=== PATIENT | female | born 1975 | race Caucasian/White ===

== ENCOUNTER → 2016-11-15 | Outpatient (CLI) | payer OTHER ==
[~2016-11-15] MED LIST: AMOXICILLIN500 M2 PO; ANAPROX DS550 MG PO; ATIVAN1 MG PO; BACTRIM DS 8001 TA1 PO; CELEXA20 MG PO; CELEXA40 MG PO; COMBIVENT RESPIM4 GM IH; COMBIVENT1 AR1 INH; DOXYCYCLINE HY100 M5 PO; FLEXERIL10 MG PO; HYDROCODONE BIT1 T11 PO; INCRUSE EL62.5 MCG/A INH; KLONOPIN1 MG PO; LYRICA150 MG PO; LYRICA75 MG PO; MOTRIN800 MG PO; NAPROXEN375 MG PO; NEURONTIN300 MG PO; NORCO 10-325 T1 EACH PO; NORCO 325 MG-101 TAB PO; NORCO 5-325 TA1 EACH PO; PERCOCET 325 MG1 TA6 PO; PREDNICOT20 MG PO; PREDNISONE20 M1 PO; ROBAXIN750 MG PO; SEPTRA DS 800 M1 TAB PO; SEROQUEL100 MG PO; SPIRIVA -- 3018 MCG INH; SULFAMETH/TRIME1 TAB PO; VANCOCIN1000 MG/25 IV; VENTOLIN0.09 MG/AC INH; XANAX1 MG PO; ZOLOFT50 MG PO
== END | disposition home or self-care (01) ==
LOC: CT 11-02 10:00 → US 09:30
DX: C50.311 Malignant neoplasm of lower-inner quadrant of right female breast (principal); K76.89 Other specified diseases of liver; F17.200 Nicotine dependence, unspecified, uncomplicated; Z90.11 Acquired absence of right breast and nipple

== ENCOUNTER → 2017-05-14 | Outpatient (CLI) | payer OTHER | END | disposition home or self-care (01) | LOC: MAMMO 04-24 13:00 | DX: R92.8 Other abnormal and inconclusive findings on diagnostic imaging of breast (principal); Z90.11 Acquired absence of right breast and nipple ==

== ENCOUNTER → 2017-08-13 | Outpatient (CLI) | payer OTHER | END | disposition home or self-care (01) | LOC: US 08-08 13:00 | DX: N93.8 Other specified abnormal uterine and vaginal bleeding (principal); Z85.3 Personal history of malignant neoplasm of breast ==

== ENCOUNTER 2019-04-28 21:16 | Inpatient (IN) | payer OTHER ==
[~2019-04-28] VITALS: Ht 182.8 cm; Wt 66.7 kg
--- NOTE | ~2019-04-28 | PR ---
[place], [place] PROGRESS NOTE NAME: KYLEE EDGE [facility] #: [id number] UNIT #: [id number] ROOM: 406 DOCTOR: BEAU MACDONALD MD BIRTHDATE: [birth year] DOS: 05/01/2019 SUBJECTIVE: The patient is not having any new complaints. She is starting to feel better. OBJECTIVE: VITAL SIGNS: Blood pressure is 109/66, pulse of 80, respirations 18, temperature 97.6. LUNGS: Diminished breath sounds. A few scattered wheezes which is much improved over the last few days. HEART: Regular. ABDOMEN: Soft, scaphoid. EXTREMITIES: Without any edema. LABORATORY DATA: White cell count has come down to 16,000. Blood culture shows no bacterial growth. ASSESSMENT AND PLAN: 1. Acute exacerbation of chronic obstructive pulmonary disease, on steroids and antibiotics. She does not have a nebulizer at home. We will try to get one for her before she goes home. 2. Elevated white cell count, most likely from steroids. It is coming down, was normal at admission. There is no evidence of sepsis in this patient. 3. Acute tracheobronchitis, on IV antibiotics. 4. Major depression, mild, recurrent. Continue medications. BEAU MACDONALD MD CM:PNTRANS 07 21 BEAU MACDONALD MD 05/01/19 142 interface
--- NOTE | ~2019-04-28 | CON ---
[place], [place] REPORT OF CONSULTATION NAME: KYLEE EDGE [facility] #: [id number] UNIT #: [id number] ROOM: 406 DOCTOR: NATALIE BLANCO MDKENDALL BIRTHDATE: [birth year] DOS: 05/02/2019 PULMONARY CONSULTATION, EVALUATION AND MANAGEMENT CONSULTATION REQUESTED BY: Dr. Hilda Arevalo. REASON FOR CONSULTATION: To assess abnormal CT scan of the chest. HISTORY OF PRESENT ILLNESS: A 43-year-old white female patient who was admitted under the care of Dr. Hilda Arevalo on the date of 04/28/2019. The patient presented to the hospital and admitted as she has been developing severe respiratory symptom, coughing, chest congestion with wheezing and tightness in the chest. The symptoms of the patient started 2 days prior to admission to the hospital. The patient has been hospitalized under the care of Dr. Hilda Arevalo on 04/28/2019. She was planned for home discharge today. The patient had accidentally CT scan of chest ordered by the nursing staff that reported abnormal findings, stated multifocal pneumonia. I was asked to assess the patient for that. The patient stated that she has been expectorating sputum with intermittent wheezing still present, but gradually improving and significantly decreased since hospitalization. She denies symptoms of chest pain. Shortness of breath was still reported with exertion, but overall improving. The patient is able to walk more distances since hospitalization. Denies symptoms of acute chest pain. There were no symptoms of hemoptysis stated from admission. REVIEW OF SYSTEMS: CONSTITUTIONAL SYMPTOMS: Fatigue and tiredness reported. Denies symptoms of fever or chills. EYES: Denies any burning, redness, or tenderness. EARS, NOSE, THROAT SYMPTOMS: No sore throat, hoarseness, otalgia, postnasal drainage or epistaxis. CARDIOVASCULAR SYSTEM: Denies angina pain, edema, or pain of the lower extremities. GASTROINTESTINAL SYMPTOMS: Denies dysphagia, nausea, vomiting, diarrhea, abdominal pain, hematemesis, melena, or hematochezia. SKIN: Denies lesions or rashes. CENTRAL NERVOUS SYSTEM: Denies dizziness, headache, diplopia, or syncopal episodes. MUSCULOSKELETAL: No acute joint pain, redness, or tenderness. CENTRAL NERVOUS SYSTEM: Denies dizziness, headache, diplopia or syncopal episode. Remaining systems were reviewed. They were noted all negative. PAST MEDICAL HISTORY: Reported as: 1. COPD. 2. Chronic nicotine dependence. 3. Intervertebral disk disease with lower back pain. 4. General anxiety disorder and depression. 5. Bipolar disorder. [place], [place] REPORT OF CONSULTATION NAME: KYLEE EDGE UNIT #: [id number] ROOM: [facility] DOCTOR: KENDALL GONSALVES MD BIRTHDATE: [birth year] SOCIAL HISTORY: Stated by the patient as she lives at home, currently , has 1 child. Smoking was noted less than a pack of cigarettes per day since teenager. Active tobacco use noted until hospitalization. Denies any alcohol or illicit drug use. FAMILY HISTORY: Father at age of 54 due to lung cancer. Mother at the age of 5454 years old from some other illnesses. HOME MEDICATIONS: Reported as doxepin, gabapentin, Vistaril, and Seroquel. CURRENT MEDICATIONS: Actively administered were noted as Celebrex, gabapentin, Seroquel, hydroxyzine, doxepin, nicotine replacement patches, Solu-Medrol 40 mg b.i.d., IV Rocephin, and some other meds including bronchodilators every 4 hours, DuoNeb. DRUG ALLERGIES: Reported as no known drug allergies. PHYSICAL EXAMINATION: GENERAL: This is a 43-year-old female patient who has been noted currently awake and alert, resting comfortably on the bed. Height of 6 feet, weight of 147 pounds, BMI 19.9. VITAL SIGNS: Normal temperature in the last 3 days, respiratory rate ranged between 18-28, heart rate 71-74, blood pressure 104/68-116/78. Pulse oxygen saturation on 2 liters nasal cannula 98% saturation recorded at the present time on the rest. The pulse oxygen saturation recorded was 88% on admission. HEENT: Examination shows head was atraumatic. Eyes nonicterus. NECK: Supple. CARDIOVASCULAR SYSTEM: S1, S2 is audible. LUNGS: Noted with expiratory wheezing in the lungs bilaterally. The wheezing was noted mild at the present time. No crackles were heard. ABDOMEN: Flat, soft, nontender. Bowel sounds present. EXTREMITIES: The patient was noted without edema, clubbing or cyanosis. MUSCULOSKELETAL: The patient noted without any acute deformities. CENTRAL NERVOUS SYSTEM: The patient's cranial nerves 2-12 intact. LABORATORY DATA: Assessed for this consultation for this patient. Admission CBC of 04/28/2019; WBC count 11.9, hemoglobin and hematocrit normal, platelet count normal. Eosinophils were 3%. CMP of 04/28/2019; normal BUN and creatinine, glucose 100, potassium 3.4, CO2 of 33 at that time. CBC that was done just today; WBC count 16.6, hemoglobin 13.1, platelet count were normal. CBC this morning; WBC count 14.2. Remaining CBC was normal. BMP 17 was noted, normal BUN and creatinine. Potassium was noted normal as well. Chest x-ray noted hyperinflation of lung without any acute visible pulmonary infiltration. Lactic acid noted 0.9 on 04/28/[address] scan of chest without contrast was reviewed, shows multiple areas of ground-glass opacity scattered in the lungs bilaterally in all of the lobes. There were no discrete area of consolidation or any lymphadenopathy findings with centrilobular emphysema. IMPRESSION: [place], [place] REPORT OF CONSULTATION NAME: KYLEE EDGE UNIT #: [id number] ROOM: [facility] DOCTOR: NATALIE BLANCO MD,KENDALL BIRTHDATE: [birth year] 1. The patient who has been currently admitted to the hospital with finding highly suggestive of acute hypoxic respiratory failure with acute exacerbation of bronchial asthma. Current abnormal finding, which were noted for this patient CT scan suggested possibility of atypical pneumonia, likely cause as well and focal areas of atelectasis, mucus impaction of the airways. 2. Chronic heavy nicotine dependence also noted for a long-term. 3. History of chronic low back pain and psychiatric illnesses. PLAN OF MANAGEMENT: At this time, the patient has been expectorating sputum. The hypoxia noted on admission has resolved. Wheezing is still present, but not completely resolved. The patient would be discharged home on tapering dose of prednisone prescription ordered for the patient as well as Zithromax to be given orally for 5 days of Z-VIRGINIE. Complete abstinence tobacco use were recommended. Nicotine replacement patches prescription was also given to the patient. The patient has been ordered low dose of prednisone and the cefuroxime by Dr. Hilda Arevalo, which will be discontinued and not used by the patient. The patient was strongly suggested outpatient followup established to document the resolution of current problem. Further additional workup as necessary. Other therapy, plan of management, plan of care and treatment. If the patient continued to have some respiratory issues, the patient needs an urgent appointment. She could be seen in the office in the next few days, otherwise to be followed the patient should suffice. No further workup at this time to be started at this hospitalization and investigation further needed to be done as an outpatient. Thanks for allowing me to participate in the care of this patient. KENDALL ESTRADA MD CM:CONSTR:REPORT OF CONSULTATION 1523 05/03/19 0216 interface
--- NOTE | ~2019-04-28 | DS ---
[place], [place] DISCHARGE SUMMARY NAME: KYLEE EDGE [facility] #: [id number] UNIT #: [id number] ROOM: 406 DOCTOR: BEAU MACDONALD MD BIRTHDATE: [birth year] DOS: HOSPITAL COURSE: The patient is 43 years old. The patient is not known to me. The patient comes in with complaints of difficulty breathing, cough. Please see H and P for details. The patient was found to have significant bronchospasm, was admitted with diagnosis of acute exacerbation of COPD, was placed on IV steroids, IV antibiotics, breathing treatments. Lactic acid was normal. Blood cultures were negative. White cell count went up from normal to 19,000, possibly from steroids. It has come down and is now down today to 14.2. Her bronchospasm is much improved. She has been given a nebulizer and breathing treatments. The plan is to discharge her to home. She is encouraged to quit smoking. DISCHARGE MEDICATIONS: Prednisone tapering dose, Ceftin 250 twice daily for 5 days, breathing treatments with DuoNeb q.i.d., gabapentin 800 q.i.d., Seroquel 100 at bedtime, hydroxyzine 25 at bedtime, doxepin 25 at bedtime. BEAU MACDONALD MD CM:DISCHARG 5 5 BEAU MACDONALD MD 05/02/19935 interface
--- NOTE | ~2019-04-28 | WRIGHTHP ---
[place], [place] PATIENT HISTORY AND PHYSICAL EXAM NAME: KYLEE EDGE [facility] #: [id number] UNIT #: [id number] ROOM: 406 DOCTOR: BEAU MACDONALD MD BIRTHDATE: [birth year] DOS: 04/28/2019 HISTORY OF PRESENT ILLNESS: The patient is 43 years old. The patient comes in with complaints of cough and shortness of breath. The patient states that her son had a cold and she started developing a scratchy throat and later on progressed to a cough and yesterday she had a hard time breathing. She used her mother's oxygen. She was using inhalers and was not helping, so she decided to come into the hospital. She denies having any chest pains or palpitations, does not have any fever or chills, does not have any abdominal pain, nausea, and emesis. PAST MEDICAL HISTORY: Significant for: 1. COPD. 2. Moderate cigarette smoker. 3. Chronic low back pain. MEDICATIONS: Doxepin 25 at bedtime, gabapentin 800 q.i.d., Vistaril 25 at bedtime, Seroquel 100 at bedtime. SOCIAL HISTORY: Smokes about less than a pack of cigarettes a day, does not use any alcohol. Lives at home. PHYSICAL EXAMINATION: GENERAL: She is awake and alert and oriented. VITAL SIGNS: Blood pressure is 113/59, pulse of 96, respirations 18, temperature 98.2. LUNGS: Diminished breath sounds. Scattered wheezes and rhonchi. HEART: Regular. ABDOMEN: Soft, scaphoid. EXTREMITIES: Without any edema. LABORATORY DATA: White cell count is 11.9, hemoglobin 13.1, hematocrit 40.3, platelets 209. Comprehensive glucose 100, BUN 8, creatinine 0.93, sodium 141, potassium 3.4, chloride 106, bicarbonate 33. Troponin is less than 0.15. SGOT and SGPT within normal limits. Lactic acid normal. Chest x-ray negative. ASSESSMENT AND PLAN: 1. The patient with acute exacerbation of chronic obstructive pulmonary disease. The patient is placed on IV steroids and breathing treatments, maximize bronchodilators. 2. Acute tracheobronchitis. IV antibiotics have been added, 3. Moderate cigarette smoker, counseled. The patient is currently using a patch to quit smoking. 4. Major depression, multiple psych medications are being continued. [place], [place] PATIENT HISTORY AND PHYSICAL EX[id number] UNIT #: [id number] ROOM: 406 DOCTOR: BEAU MACDONALD MD BIRTHDATE: [birth year] BEAU MACDONALD MD CM:HISPHYS:PATIENT HISTORY AND PHYSICAL EXAMINATION 1515 1524 BEAU MACDONALD MD 04/29/19 1524 interface
--- NOTE | ~2019-04-28 | EKG ---
[place], [place] ELECTROCARDIOGRAM REPORT NAME: KYLEE EDGE UNIT #: [id number] ROOM: 406 DOCTOR: HARVEY DRAFT REPORT BIRTHDATE: [birth year] [facility] Test Date: 2019-04-28 Test Time: 22:05:57 Pat Name: KYLEE EDGE Department: Room: 406 Gender: F [employer] Architect: Genevieve Juárez : 1975 Requested By: DANIEL NGUYỄN PA-C Order Number: [id number] Reading MD: Scooby Morse MD Measurements Intervals [place] Rate: 89 P: 88 SC: 180 QRS: 87 QRSD: 97 T: 40 QT: 372 QTc: 453 Interpretive Statements Sinus rhythm KAYLI, consider biatrial enlargement Electronically Signed On 04-29-2019 6:06:47 PDT by Scooby Morse MD CM:EKGRPT:ELECTROCARDIOGRAM REPORT 04 0606 DANIEL NGUYỄN PA-C EPIPHANY DRAFT REPORT DANIEL NGUYỄN PA-C
--- NOTE | ~2019-04-28 | PR ---
[place], [place] PROGRESS NOTE NAME: KYLEE EDGE [facility] #: [id number] UNIT #: [id number] ROOM: 406 DOCTOR: BEAU MACDONALD MD BIRTHDATE: [birth year] DOS: 05/02/2019 SUBJECTIVE: The patient is doing well, does not have any new complaints today. OBJECTIVE: VITAL SIGNS: Blood pressure is 116/70, pulse of 74, respirations 18, temperature 97.6. LUNGS: Diminished breath sounds. A few wheezes heard, which is much improved. HEART: Regular. ABDOMEN: Soft, scaphoid. EXTREMITIES: Without any edema. ASSESSMENT AND PLAN: 1. Acute exacerbation of chronic obstructive pulmonary disease, on intravenous steroids. A nebulizer was ordered yesterday and Respiratory is trying to get that order for the patient. If we can get her that nebulizer for home, she can be discharged. 2. Acute tracheobronchitis, on antibiotics. 3. Moderate cigarette smoker. She needs to stop smoking to avoid future admissions to the hospital. White cell count 16,000 yesterday, we will repeat it today. BEAU MACDONALD MD CM:PNTRANS 0747 1012 BEAU MACDONALD MD 05/02/19 1012 interface
--- NOTE | ~2019-04-28 | PR ---
[place], [place] PROGRESS NOTE NAME: KYLEE EDGE [facility] #: [id number] UNIT #: [id number] ROOM: 406 DOCTOR: BEAU MACDONALD MD BIRTHDATE: [birth year] DOS: 04/30/2019 SUBJECTIVE: The patient is starting to cough up a little bit this morning. OBJECTIVE: VITAL SIGNS: Pressure is 128/68, pulse of 80, respirations 18, temperature 98.1. LUNGS: Diminished breath sounds. Scattered wheezes and rhonchi. HEART: Regular. ABDOMEN: Soft, scaphoid. EXTREMITIES: Without any edema. LABORATORY DATA: WBC count is 19.8, hemoglobin 12.6, hematocrit normal. Glucose is 134. BUN and creatinine and electrolytes were normal. ASSESSMENT AND PLAN: 1. Acute exacerbation of chronic obstructive pulmonary disease, on IV steroids and breathing treatments. 2. Acute tracheobronchitis, but chest x-ray did not show any pathology. White cell count has gone up to 19,000. This could be steroid effect. Repeat the CBC again in the morning. If it does not come down, may need to consider a CT of the chest. 3. Major depression, moderate, controlled. BEAU MACDONALD MD CM:PNTRANS 0840 BEAU MACDONALD MD 05/01/195 interface
[2019-04-28 21:19] VITALS: BP 109/69
[2019-04-28 22:11] LABS: BASO % 0.3 % (0.0-1.0); EOS # 0.4 10*3/uL (0.0-0.4); HEMATOCRIT 40.3 % (37.0-47.0); HEMOGLOBIN 13.1 g/dl (12.0-16.0); LYMPH # 1.8 10*3/uL (1.3-4.4); LYMPH % 15.1 % (27.0-41.0); MEAN CELL VOLUME 98.1 fl (81.0-99.0); MEAN CORPUSCULAR HGB 31.9 pg (27.0-31.0); MEAN CORPUSCULAR HGB CONC 32.5 g/dl (33.0-37.0); MEAN PLATELET VOLUME 10.1 fl (9.6-12.3); MONO # 0.7 10*3/uL (0.1-1.0); MONO % 5.8 % (3.0-9.0); NEUT % 75.5 % (47.0-73.0); PLATELET COUNT AUTOMATED 209 10*3/uL (130-400); RED BLOOD COUNT 4.11 10*6/uL (4.10-5.10); RED CELL DISTRI WIDTH 15.1 % (0-14.5); WHITE BLOOD COUNT 11.9 10*3/uL (4.8-10.8)
[2019-04-28 22:28] LABS: ALBUMIN 3.8 gm/dl (3.1-4.5); ALKALINE PHOSPHATASE 63 U/L (45-117); BUN 8 mg/dl (7-24); CHLORIDE 106 mmol/L (98-107); CREATININE 0.93 mg/dL (0.55-1.02); LIPASE 82 U/L (73-393); POTASSIUM 3.4 mmol/L (3.5-5.1); SGOT/AST 15 IU/L (3-35); SGPT/ALT 15 U/L (12-78); SODIUM 141 mmol/L (136-145)
[2019-04-28 22:31] LABS: TROPONIN I < 0.015 ng/ml (<0.045)
[2019-04-28 23:08] VITALS: BP 116/74
[2019-04-28 23:15] LABS: BILIRUBIN NEGATIVE (NEGATIVE); BLOOD NEGATIVE (NEGATIVE); CLARITY CLEAR (CLEAR); COLOR YELLOW (YELLOW); GLUCOSE NEGATIVE (NEGATIVE); KETONE NEGATIVE (NEGATIVE); LEUKO ESTERASE NEGATIVE (NEGATIVE); NITRITE NEGATIVE (NEGATIVE); UROBILINOGEN 0.2 E.U./dl (0.2-1.0)
[2019-04-28] MEDS ORDERED: VISTARIL25 M2 PO (23:43)
[2019-04-28] MEDS ORDERED: SINEQUAN25 MG PO (23:45)
[2019-04-29] VITALS: BP 120/59
[2019-04-29 07:46] VITALS: BP 110/48
[2019-04-29 12:00] VITALS: BP 113/59
[2019-04-29 15:44] VITALS: BP 95/73
[2019-04-29 20:00] VITALS: BP 124/71
[2019-04-30] VITALS: BP 106/67
[2019-04-30 07:03] LABS: BASO % 0.2 % (0.0-1.0); HEMATOCRIT 38.5 % (37.0-47.0); HEMOGLOBIN 12.6 g/dl (12.0-16.0); LYMPH # 1.5 10*3/uL (1.3-4.4); LYMPH % 7.3 % (27.0-41.0); MEAN CELL VOLUME 95.1 fl (81.0-99.0); MEAN CORPUSCULAR HGB 31.1 pg (27.0-31.0); MEAN CORPUSCULAR HGB CONC 32.7 g/dl (33.0-37.0); MEAN PLATELET VOLUME 10.3 fl (9.6-12.3); MONO # 0.9 10*3/uL (0.1-1.0); MONO % 4.3 % (3.0-9.0); NEUT # 17.3 10*3/uL (2.3-7.9); NEUT % 87.6 % (47.0-73.0); PLATELET COUNT AUTOMATED 233 10*3/uL (130-400); RED BLOOD COUNT 4.05 10*6/uL (4.10-5.10); RED CELL DISTRI WIDTH 15.2 % (0-14.5); WHITE BLOOD COUNT 19.8 10*3/uL (4.8-10.8)
[2019-04-30 07:19] LABS: BUN 9 mg/dl (7-24); CHLORIDE 107 mmol/L (98-107); CREATININE 0.83 mg/dL (0.55-1.02); POTASSIUM 3.9 mmol/L (3.5-5.1); SODIUM 138 mmol/L (136-145)
[2019-04-30 08:00] VITALS: BP 128/68
[2019-04-30 12:00] VITALS: BP 105/63
[2019-04-30 16:00] VITALS: BP 126/60
[2019-04-30 20:00] VITALS: BP 118/72
[2019-05-01] VITALS: BP 109/66
[2019-05-01 06:10] LABS: BASO % 0.1 % (0.0-1.0); HEMATOCRIT 40.2 % (37.0-47.0); HEMOGLOBIN 13.1 g/dl (12.0-16.0); LYMPH # 1.4 10*3/uL (1.3-4.4); LYMPH % 8.4 % (27.0-41.0); MEAN CELL VOLUME 97.1 fl (81.0-99.0); MEAN CORPUSCULAR HGB 31.6 pg (27.0-31.0); MEAN CORPUSCULAR HGB CONC 32.6 g/dl (33.0-37.0); MEAN PLATELET VOLUME 10.4 fl (9.6-12.3); MONO # 0.6 10*3/uL (0.1-1.0); MONO % 3.7 % (3.0-9.0); NEUT # 14.4 10*3/uL (2.3-7.9); NEUT % 87.1 % (47.0-73.0); PLATELET COUNT AUTOMATED 223 10*3/uL (130-400); RED BLOOD COUNT 4.14 10*6/uL (4.10-5.10); RED CELL DISTRI WIDTH 15.6 % (0-14.5); WHITE BLOOD COUNT 16.6 10*3/uL (4.8-10.8)
[2019-05-01] MEDS ORDERED: NEBULIZER (07:01)
[2019-05-01 08:00] VITALS: BP 128/60
[2019-05-01 12:00] VITALS: BP 101/67
[2019-05-01 16:00] VITALS: BP 115/76
[2019-05-01 20:00] VITALS: BP 108/69
[2019-05-02] VITALS: BP 116/70
[2019-05-02] MEDS ORDERED: PREDNISONE5 MG PO (07:51)
[2019-05-02] MEDS ORDERED: CEFUROXIME AXE250 MG PO (07:51)
[2019-05-02] MEDS ORDERED: Ipratropium Brom3 ML INH (07:52)
[2019-05-02 08:00] VITALS: BP 104/68
[2019-05-02 08:10] LABS: BASO % 0.3 % (0.0-1.0); EOS % 0.2 % (1.0-4.0); HEMATOCRIT 42.3 % (37.0-47.0); HEMOGLOBIN 13.8 g/dl (12.0-16.0); LYMPH # 3.7 10*3/uL (1.3-4.4); LYMPH % 25.7 % (27.0-41.0); MEAN CELL VOLUME 97.2 fl (81.0-99.0); MEAN CORPUSCULAR HGB 31.7 pg (27.0-31.0); MEAN CORPUSCULAR HGB CONC 32.6 g/dl (33.0-37.0); MONO % 6.8 % (3.0-9.0); NEUT # 9.4 10*3/uL (2.3-7.9); NEUT % 66.3 % (47.0-73.0); PLATELET COUNT AUTOMATED 232 10*3/uL (130-400); RED BLOOD COUNT 4.35 10*6/uL (4.10-5.10); RED CELL DISTRI WIDTH 15.2 % (0-14.5); WHITE BLOOD COUNT 14.2 10*3/uL (4.8-10.8)
== END 2019-05-02 14:05 | disposition home or self-care (01) | DRG 133 ==
LOC: ED 21:16 → 4E 22:59 → EDHOLD 22:59 → 4E 23:22
PROVIDERS: Physician Assistant; ADMIT Internal Medicine
DX: J96.01 Acute respiratory failure with hypoxia (principal); J20.9 Acute bronchitis, unspecified; J45.901 Unspecified asthma with (acute) exacerbation; J44.1 Chronic obstructive pulmonary disease with (acute) exacerbation; F17.210 Nicotine dependence, cigarettes, uncomplicated; F41.1 Generalized anxiety disorder; M19.90 Unspecified osteoarthritis, unspecified site; J44.0 Chronic obstructive pulmonary disease with (acute) lower respiratory infection; F33.1 Major depressive disorder, recurrent, moderate; Z90.11 Acquired absence of right breast and nipple; Z98.1 Arthrodesis status; Z82.49 Family history of ischemic heart disease and other diseases of the circulatory system; Z81.8 Family history of other mental and behavioral disorders; Z80.9 Family history of malignant neoplasm, unspecified

== ENCOUNTER → 2021-12-07 | Outpatient (CLI) | payer OTHER ==
[~2021-12-07] MED LIST changes: +CEFUROXIME AXE250 MG PO; +Ipratropium Brom3 ML INH; +NEBULIZER; +PREDNISONE5 MG PO; +SINEQUAN25 MG PO; +VISTARIL25 M2 PO
[2021-12-07 17:47] LABS: BASO % 0.5 % (0.0-1.0); EOS # 0.1 10*3/uL (0.0-0.4); EOS % 1.8 % (1.0-4.0); HEMATOCRIT 36.3 % (37.0-47.0); LYMPH # 2.1 10*3/uL (1.3-4.4); LYMPH % 37.2 % (27.0-41.0); MEAN CELL VOLUME 90.5 fl (81.0-99.0); MEAN CORPUSCULAR HGB 29.7 pg (27.0-31.0); MEAN CORPUSCULAR HGB CONC 32.8 g/dl (33.0-37.0); MEAN PLATELET VOLUME 10.1 fl (9.6-12.3); MONO # 0.4 10*3/uL (0.1-1.0); MONO % 7.1 % (3.0-9.0); NEUT % 53.2 % (47.0-73.0); PLATELET COUNT AUTOMATED 218 10*3/uL (130-400); RED BLOOD COUNT 4.01 10*6/uL (4.10-5.10); RETICULOCYTE % 1.34 % (0.50-2.50); WHITE BLOOD COUNT 5.6 10*3/uL (4.8-10.8)
[2021-12-07 17:48] LABS: BILIRUBIN Negative (Negative); BLOOD Negative (Negative); CLARITY Clear (Clear); COLOR Yellow (Yellow); GLUCOSE Negative (Negative); KETONE Trace (Negative); LEUKO ESTERASE Negative (Negative); NITRITE Negative (Negative); UROBILINOGEN 0.2 E.U./dl (0.0-1.0)
[2021-12-07 18:05] LABS: ALKALINE PHOSPHATASE 55 U/L (45-117); BUN 11 mg/dl (7-24); CHLORIDE 104 mmol/L (98-107); CHOLESTEROL 221 mg/dL (<200); CREATININE 0.85 mg/dL (0.55-1.02); GAMMA GLUTAMYL TRANSPEPTIDASE 16 U/L (5-55); IRON 70 ug/dL (50-170); LDL CHOLESTEROL 156 mg/dL (9-159); POTASSIUM 3.6 mmol/L (3.5-5.1); SGOT/AST 18 IU/L (3-35); SGPT/ALT 19 U/L (12-78); SODIUM 139 mmol/L (136-145); TOTAL IRON BINDING CAPACITY 283 ug/dl (250-450); TOTAL PROTEIN 7.2 gm/dL (6.4-8.2); TRIGLYCERIDES 98 mg/dl (<150)
[2021-12-07 18:08] LABS: BACTERIA 1+; MUCOUS 1+; WBC 0-2 wbc/hpf (0-5)
[2021-12-07 18:11] LABS: THYROID STIM HORMONE (HS) 0.506 uIU/ml (0.358-4.75)
[2021-12-07 18:30] LABS: FERRITIN 55.4 ng/mL (10.0-291.0); VITAMIN D, 25-HYDROXY 25.3 ng/mL (30-100)
== END | disposition home or self-care (01) ==
LOC: LAB 17:21
PROVIDERS: ATTEND Family Medicine
DX: J44.9 Chronic obstructive pulmonary disease, unspecified (principal); E78.5 Hyperlipidemia, unspecified; E55.9 Vitamin D deficiency, unspecified; R79.89 Other specified abnormal findings of blood chemistry; R53.83 Other fatigue

== ENCOUNTER → 2023-09-19 | Outpatient (CLI) | payer OTHER ==
[2023-09-19 11:42] LABS: BASO % 0.7 % (0.0-1.0); EOS # 0.1 10*3/uL (0.0-0.4); EOS % 2.7 % (1.0-4.0); HEMATOCRIT 40.3 % (37.0-47.0); LYMPH # 1.5 10*3/uL (1.3-4.4); LYMPH % 36.5 % (27.0-41.0); MEAN CELL VOLUME 95.5 fl (81.0-99.0); MEAN CORPUSCULAR HGB 29.1 pg (27.0-31.0); MEAN CORPUSCULAR HGB CONC 30.5 g/dl (33.0-37.0); MEAN PLATELET VOLUME 10.3 fl (9.6-12.3); MONO # 0.4 10*3/uL (0.1-1.0); MONO % 8.5 % (3.0-9.0); NEUT # 2.1 10*3/uL (2.3-7.9); NEUT % 51.6 % (47.0-73.0); PLATELET COUNT AUTOMATED 193 10*3/uL (130-400); RED BLOOD COUNT 4.22 10*6/uL (4.10-5.10); RED CELL DISTRI WIDTH 14.4 % (0-14.5); RETICULOCYTE % 1.01 % (0.50-2.50); WHITE BLOOD COUNT 4.1 10*3/uL (4.8-10.8)
[2023-09-19 12:19] LABS: ALKALINE PHOSPHATASE 59 U/L (46-116); BUN 9 mg/dl (9-23); CHLORIDE 106 mmol/L (98-107); CHOLESTEROL 199 mg/dL (<200); GAMMA GLUTAMYL TRANSPEPTIDASE 13 U/L (0-73); LDL CHOLESTEROL 123 mg/dL (9-159); POTASSIUM 3.9 mmol/L (3.4-5.1); T3 UPTAKE 21.6 % (22.4-36.7); THYROXINE (T4) TOTAL 6.2 ug/dl (4.5-10.9); TOTAL PROTEIN 7.1 gm/dL (6.0-8.0); TRIGLYCERIDES 62 mg/dl (<150); URIC ACID 3.6 mg/dL (3.1-7.8)
[2023-09-19 12:20] LABS: SGPT/ALT < 7 U/L (5-49)
[2023-09-19 12:20] LABS: BILIRUBIN Negative (Negative); BLOOD Negative (Negative); CLARITY Clear (Clear); COLOR Yellow (Yellow); GLUCOSE Negative (Negative); KETONE Trace (Negative); LEUKO ESTERASE Negative (Negative); NITRITE Negative (Negative); PH 5.5 (4.5-8.0); SPECIFIC GRAVITY 1.025 (1.001-1.030); UROBILINOGEN 0.2 E.U./dl (0.0-1.0)
[2023-09-19 12:32] LABS: VITAMIN D, 25-HYDROXY 8.5 ng/mL (30-100)
[2023-09-19 13:32] LABS: MUCOUS 1+; RBC 0-2 rbc/hpf (0-2)
== END | disposition home or self-care (01) ==
LOC: LAB 11:13
PROVIDERS: ATTEND Family Medicine
DX: E78.5 Hyperlipidemia, unspecified (principal); E55.9 Vitamin D deficiency, unspecified; R79.89 Other specified abnormal findings of blood chemistry; R53.83 Other fatigue; R74.8 Abnormal levels of other serum enzymes

== ENCOUNTER 2024-12-21 14:14 | Observation (INO) | payer OTHER ==
[~2024-12-21] VITALS: Ht 182.8 cm; Wt 59.1 kg
[2024-12-21 14:24] VITALS: BP 125/80
[2024-12-21] MEDS ORDERED: ASPIRIN 325 MG TAB PO ONE (14:55)
[2024-12-21 15:05] LABS: BASO # 0.1 10*3/uL (0.0-0.1); BASO % 0.8 % (0.0-1.0); EOS # 0.3 10*3/uL (0.0-0.4); EOS % 4.3 % (1.0-4.0); HEMATOCRIT 39.2 % (37.0-47.0); MEAN CELL VOLUME 94.5 fl (81.0-99.0); MEAN CORPUSCULAR HGB 29.6 pg (27.0-31.0); MEAN CORPUSCULAR HGB CONC 31.4 g/dl (33.0-37.0); MEAN PLATELET VOLUME 9.9 fl (9.6-12.3); MONO # 0.4 10*3/uL (0.1-1.0); MONO % 6.5 % (3.0-9.0); NEUT # 3.8 10*3/uL (2.3-7.9); NEUT % 59.4 % (47.0-73.0); PLATELET COUNT AUTOMATED 173 10*3/uL (130-400); RED BLOOD COUNT 4.15 10*6/uL (4.10-5.10); RED CELL DISTRI WIDTH 13.2 % (0-14.5); WHITE BLOOD COUNT 6.4 10*3/uL (4.8-10.8)
[2024-12-21 15:16] LABS: ACT PARTIAL THROMBO TIME 25.8 SECONDS (20.0-32.1)
[2024-12-21 15:25] LABS: BUN 10 mg/dl (9-23); CHLORIDE 101 mmol/L (98-107); POTASSIUM 3.9 mmol/L (3.4-5.1)
[2024-12-21] MEDS ORDERED: BUPRENORPHINE HY8 MG SL (17:39)
[2024-12-21] MEDS ORDERED: SPIRIVA RESPIMAT4 GM INH (17:40)
[2024-12-21] MEDS ORDERED: CYMBALTA30 MG PO (17:41)
[2024-12-21 17:43] VITALS: BP 115/70
[2024-12-21] MEDS ORDERED: Magnesium Hydroxide 30 ML UDC PO PRN (18:10)
[2024-12-21] MEDS ORDERED: Ondansetron Hydrochloride 4 MG/2 ML VIAL IV PRN (18:10)
[2024-12-21] MEDS ORDERED: BISACODYL 5 MG TAB PO PRN (18:10)
[2024-12-21] MEDS ORDERED: ACETAMINOPHEN 650 MG SUPP R PRN (18:10)
[2024-12-21] MEDS ORDERED: BISACODYL 10 MG SUPP R PRN (18:10)
[2024-12-21] MEDS ORDERED: ACETAMINOPHEN 325 MG TAB PO PRN (18:10)
[2024-12-21] MEDS ORDERED: GABAPENTIN 600 MG TAB PO ONE (19:50)
[2024-12-21] MEDS ORDERED: DULoxetine Hydrochloride 30 MG CAP PO SCH (22:00)
[2024-12-21 23:10] VITALS: BP 116/68
[2024-12-22 04:00] VITALS: BP 113/64
[2024-12-22] MEDS ORDERED: Regadenoson 0.4 MG/5 ML SYR IV ONE (05:22)
[2024-12-22 08:00] VITALS: BP 121/63
[2024-12-22 09:08] LABS: BASO # 0.1 10*3/uL (0.0-0.1); BASO % 0.9 % (0.0-1.0); EOS # 0.2 10*3/uL (0.0-0.4); EOS % 3.6 % (1.0-4.0); HEMATOCRIT 43.1 % (37.0-47.0); MEAN CELL VOLUME 94.3 fl (81.0-99.0); MEAN CORPUSCULAR HGB 29.1 pg (27.0-31.0); MEAN CORPUSCULAR HGB CONC 30.9 g/dl (33.0-37.0); MEAN PLATELET VOLUME 10.7 fl (9.6-12.3); MONO # 0.5 10*3/uL (0.1-1.0); MONO % 7.8 % (3.0-9.0); NEUT # 3.9 10*3/uL (2.3-7.9); NEUT % 60.4 % (47.0-73.0); PLATELET COUNT AUTOMATED 183 10*3/uL (130-400); RED BLOOD COUNT 4.57 10*6/uL (4.10-5.10); RED CELL DISTRI WIDTH 13.2 % (0-14.5); WHITE BLOOD COUNT 6.4 10*3/uL (4.8-10.8)
[2024-12-22 09:18] LABS: ACT PARTIAL THROMBO TIME 24.1 SECONDS (20.0-32.1)
[2024-12-22 09:53] LABS: ALKALINE PHOSPHATASE 65 U/L (46-116); BUN 8 mg/dl (9-23); CHLORIDE 101 mmol/L (98-107); CHOLESTEROL 239 mg/dL (<200); FREE T4 0.98 ng/dl (0.89-1.76); LDL CHOLESTEROL 147 mg/dL (9-159); POTASSIUM 3.9 mmol/L (3.4-5.1); SGPT/ALT 9 U/L (5-49); TOTAL PROTEIN 7.2 gm/dL (6.0-8.0); TRIGLYCERIDES 81 mg/dl (<150); VITAMIN D, 25-HYDROXY 50.4 ng/mL (30-100)
[2024-12-22] MEDS ORDERED: ATORVASTATIN CALCIUM 40 MG TABLET PO SCH (10:00)
[2024-12-22] MEDS ORDERED: ASPIRIN ENTERIC COATED 81 MG TAB PO SCH (10:00)
[2024-12-22] MEDS ORDERED: Enoxaparin Sodium 40 MG/0.4 ML SYR SC SCH (10:00)
[2024-12-22] MEDS ORDERED: ATORVASTATIN CA40 M1 PO (11:16)
== END 2024-12-22 12:20 | disposition home or self-care (01) ==
LOC: ED 14:14 → EDHOLD 17:49 → 5E 17:49
PROVIDERS: Internal Medicine; ADMIT Internal Medicine; ATTEND Internal Medicine
DX: R07.89 Other chest pain (principal); R00.1 Bradycardia, unspecified; G62.9 Polyneuropathy, unspecified; F33.42 Major depressive disorder, recurrent, in full remission; R63.6 Underweight; R06.02 Shortness of breath; E43 Unspecified severe protein-calorie malnutrition; Z68.1 Body mass index [BMI] 19.9 or less, adult